=== PATIENT | male | born 1985 | race Caucasian/White ===

== ENCOUNTER 2017-05-22 09:49 | Emergency (ER) | payer OTHER ==
[~2017-05-22] VITALS: Ht 185.4 cm; Wt 98.9 kg
--- NOTE | 2017-05-22 10:36 | RAD ---
RIBS LEFT AND PA CHEST History: Left rib pain after wrestling injury yesterday Comparison: None. Findings: Single view of the chest and 3 additional views left ribs are submitted. There is no pneumothorax, lobar infiltrate, pleural fluid. Heart size is considered within normal limits. There is posterolateral fusion hardware L5-S1 not fully included. No displaced left rib fracture is identified by radiographs. Impression: 1. No displaced left rib fracture is identified by radiographs. Electronically signed by: Mikel Davila MD (05/22/2017 10:33 AM) [id number]
[2017-05-22] MEDS ORDERED: CYCL-331 PO (10:52)
[2017-05-22] MEDS ORDERED: IBUP800T19 PO (10:52)
--- NOTE | 2017-05-22 10:54 | PHYS DOC ---
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 Patient complaining of several episodes of popping in his ribs. Patient states the pain getting worse with movement and cough and activity. Patient denies shortness of breath, fever and chills, other injuries. Patient states he took ibuprofen this morning without change of his pain. Review of Systems Review of Systems Constitutional: Denies fever or chills [] Eyes: Denies change in visual acuity, redness, or eye pain [] HENT: Denies nasal congestion or sore throat [] Respiratory: Denies cough or shortness of breath [] Cardiovascular: No additional information not addressed in HPI [] GI: Denies abdominal pain, nausea, vomiting, bloody stools or diarrhea [] : Denies dysuria or hematuria [] Musculoskeletal: Denies back pain or joint pain [] Integument: Denies rash or skin lesions [] Neurologic: Denies headache, focal weakness or sensory changes [] Endocrine: Denies polyuria or polydipsia [] All other systems were reviewed and found to be within normal limits, except as documented in this note. Physical Exam Physical Exam Constitutional: Well developed, well nourished, mild distress, non-toxic appearance. [] HENT: Normocephalic, atraumatic, bilateral external ears normal, oropharynx moist, no oral exudates, nose normal. [] Eyes: PERRLA, EOMI, conjunctiva normal, no discharge. [] Neck: Normal range of motion, no tenderness, supple, no stridor. [] Cardiovascular:Heart rate regular rhythm, no murmur [] Lungs & Thorax: Bilateral breath sounds clear to auscultation mild left lower anterior chest wall tenderness without crepitation or subcutaneous emphysema [] Abdomen: Bowel sounds normal, soft, no tenderness, no masses, no pulsatile masses. [] Skin: Warm, dry, no erythema, no rash. [] Back: No tenderness, no CVA tenderness. [] Extremities: No tenderness, no cyanosis, no clubbing, ROM intact, no edema. [] Neurologic: Alert and oriented X 3, normal motor function, normal sensory function, no focal deficits noted. [] Psychologic: Affect normal, judgement normal, mood normal. [] EKG EKG [] Radiology/Procedures Radiology/Procedures [] Course & Med Decision Making Course & Med Decision Making Pertinent Imaging studies reviewed. (See chart for details) Evaluation of patient in ER showed 31-year-old male patient presented to ER with left anterior chest wall pain after wrestling. Patient had unremarkable chest x-ray and physical exam except for muscle tenderness. Patient had blood pressure of 156 at arrival to ER that decreased to 130s without treatment. Plan discharge patient home with diagnose of muscle strain. Patient psychiatric to apply ice on his chest wall and recheck his blood pressure and follow with his primary care physician. [] Dragon Disclaimer Dragon Disclaimer This electronic medical record was generated, in whole or in part, using a voice recognition dictation system. Departure Departure: Impression: Primary Impression: Chest wall muscle strain Additional Impression: Elevated blood pressure reading without diagnosis of hypertension Disposition: HOME, SELF-CARE (at 1050) Condition: STABLE Referrals: ELVA BERNAL (PCP) Patient Instructions: Muscle Strain Additional Instructions: Apply ice on the affected area Follow-up with your primary care physician in 3-5 days Return to ER if not getting better Scripts Ibuprofen (IBUPROFEN) 800 Mg Tablet 1 TAB PO TID, #30 TAB Prov: ZAHRA MARQUEZ MD 05/22/17 Cyclobenzaprine Hcl (CYCLOBENZAPRINE HCL) 10 Mg Tablet 1 TAB PO TID, #30 TAB Prov: ZAHRA MARQUEZ MD 05/22/17 Problem Qualifiers ZAHRA MARQUEZ MD May 22, 2017 10:53
[2017-05-22 10:55] VITALS: BP 136/85
== END 2017-05-22 11:00 | disposition home or self-care (01) ==
LOC: ER 09:49
DX: S29.011A Strain of muscle and tendon of front wall of thorax, initial encounter (principal); R03.0 Elevated blood-pressure reading, without diagnosis of hypertension; X50.9XXA Other and unspecified overexertion or strenuous movements or postures, initial encounter; Y93.72 Activity, wrestling; Y99.8 Other external cause status; Y92.89 Other specified places as the place of occurrence of the external cause
CPT/HCPCS: 71101; 99284